=== PATIENT | female | born 1960 | race Caucasian/White ===

== ENCOUNTER 2017-04-08 07:53 | Day surgery (SDC) | payer BC ==
[~2017-04-08 07:53] MED LIST: Lactated Ringers 1,000 ML IV SCH; Sodium Chloride 0.9% 10 ML Syringe FLUSH PRN
[2017-04-08] MEDS ORDERED: Midazolam 1 MG/ML 2 ML SDV ONE ×2 (08:27→09:16)
[2017-04-08] MEDS ORDERED: fentaNYL 100 MCG/2 ML SDV ONE ×2 (08:27→09:16)
[2017-04-08] MEDS ORDERED: Propofol 200 MG/20 ML SDV ONE ×2 (08:28→09:16)
--- NOTE | 2017-04-08 09:13 | PCM.PN ---
- General Info Date of Service: 04/08/17 - Review of Systems Systems Review Comment:: 56-year-old female with bilateral carpal tunnel syndrome here for right carpal tunnel release. She has significant symptoms in the right hand and workup has documented the carpal tunnel syndrome. She is medically stable to proceed today with no recent significant changes in her health status. I have discussed the proposed operative procedure with the patient. Indications and expectations are reviewed. Postop instructions are discussed. I have reviewed with her the risks and possible complications. The site is confirmed with the patient and marked. She agrees to proceed. - Patient Data Vitals - Most Recent: Last Vital Signs Temp 98.5 F 04/08/17 08:44 Pulse 64 04/08/17 08:44 Resp 20 04/08/17 08:44 BP 109/70 04/08/17 08:44 Pulse Ox 94 L 04/08/17 08:44 Weight - Most Recent: 81.647 kg Med Orders - Current: Current Medications Lactated Ringer's (Ringers, Lactated) 1,000 mls @ 125 mls/hr IV ASDIRECTED SYDNEY Last Admin: 04/08/17 08:58 Dose: 125 mls/hr Sodium Chloride (Saline Flush) 10 ml FLUSH ASDIRECTED PRN PRN Reason: Keep Vein Open Discontinued Medications Fentanyl (Sublimaze) Confirm Administered Dose 100 mcg .ROUTE .STK-MED ONE Stop: 04/08/17 08:28 Midazolam HCl (Versed 1 Mg/Ml) Confirm Administered Dose 4 mg .ROUTE .STK-MED ONE Stop: 04/08/17 08:28 Propofol (Diprivan 20 Ml) Confirm Administered Dose 200 mg .ROUTE .STK-MED ONE Stop: 04/08/17 08:29 - Problem List Review Problem List Initiated/Reviewed/Updated: Yes - Assessment Assessment:: Right carpal tunnel syndrome - Plan Plan:: Right carpal tunnel release
[2017-04-08] MEDS ORDERED: Bupivacaine 0.25% 10 ML SDV INJECT ONE (09:50)
[2017-04-08] MEDS ORDERED: Bacitracin Oint 1 GM U/D Packet TOP ONE (09:51)
--- NOTE | 2017-04-08 10:07 | PCM.OPNOTE ---
- General Post-Op/Procedure Note Date of Surgery/Procedure: 04/08/17 Operative Procedure(s): Right carpal tunnel release Findings: Thickened right transverse carpal ligament causing compression of the underlying median nerve. Structures otherwise appear normal. Pre Op Diagnosis: Right carpal tunnel syndrome Post-Op Diagnosis: Same Anesthesia Technique: Regional Block Primary Surgeon: Thanh Denise Pathology: none Output, Urine Amount: 0 EBL in mLs: 5 Complications: None Condition: Good
--- NOTE | 2017-04-08 15:49 | OR ---
Date of Procedure: 04/08/2017 PREOPERATIVE DIAGNOSIS: Right carpal tunnel syndrome. POSTOPERATIVE DIAGNOSIS: Right carpal tunnel syndrome. OPERATION PERFORMED: Right carpal tunnel release. INDICATIONS FOR SURGERY: This 56-year-old female, who has developed symptoms of right carpal tunnel syndrome, which have not responded to conservative management and she comes now for carpal tunnel release. FINDINGS: The patient's right transverse carpal ligament is thickened. This is causing pressure on the underlying median nerve. The nerve and other structures in this area otherwise appear normal. PROCEDURE IN DETAIL: The patient was taken to the operating room. She was given IV regional anesthesia. The right hand, which was then sterilely prepped with Betadine and draped. A longitudinally oriented curvilinear incision was made along the palmar surface of the right wrist. Dissection proceeded down onto the right transverse carpal ligament. This ligament was sharply divided over and parallel to the course of the underlying median nerve. The ligament was completely divided at this level as are any potentially constricting fibrous bands proximally and distally. Great care was used to avoid any injury to the underlying nerve or its branches. Once the nerve had been completely released at this level, the wound was irrigated. The wound was then closed by approximating the skin with interrupted 4-0 Prolene in a mattress technique. Marcaine was then instilled into the wound to assist in postoperative analgesia. Antibiotic ointment and sterile dressing were then placed. This was held in position with an Burak bandage. The tourniquet was released, and the patient was taken from the operating room in satisfactory condition. ESTIMATED BLOOD LOSS: Less than 5 mL. COMPLICATIONS: None. PROGNOSIS: Good. ROYCE Denise MD /[id number]
== END 2017-04-08 10:50 | disposition home or self-care (01) ==
LOC: LL.SDS 07:53
PROVIDERS: ATTEND Surgery
DX: G56.03 Carpal tunnel syndrome, bilateral upper limbs (principal); M06.9 Rheumatoid arthritis, unspecified; E03.9 Hypothyroidism, unspecified; E78.5 Hyperlipidemia, unspecified; F32.9 Major depressive disorder, single episode, unspecified; E55.9 Vitamin D deficiency, unspecified; Z88.1 Allergy status to other antibiotic agents; Z79.899 Other long term (current) drug therapy; Z88.2 Allergy status to sulfonamides; Z91.09 Other allergy status, other than to drugs and biological substances; Z90.49 Acquired absence of other specified parts of digestive tract
CPT/HCPCS: 64721; J2250; J2704; J3010; J7120

== ENCOUNTER 2017-04-22 08:48 | Day surgery (SDC) | payer BC ==
[~2017-04-22 08:48] MED LIST changes: +Midazolam 1 MG/ML 2 ML SDV ONE; +Propofol 200 MG/20 ML SDV ONE; +fentaNYL 100 MCG/2 ML SDV ONE
--- NOTE | 2017-04-22 10:01 | PCM.PN ---
- General Info Date of Service: 04/22/17 - Review of Systems Systems Review Comment:: 56-year-old female here for left carpal tunnel release. She is medically stable to proceed today with no significant changes in her health status since her right carpal tunnel release 2 weeks ago. The site of the proposed surgery today is confirmed with the patient and marked. The procedures again reviewed with her and her questions are answered. The patient has recovered well from her right carpal tunnel release 2 weeks ago. The surgical site is clean and the sutures removed today. She has good mobility of the fingers and wrist and notes an improvement in the sensation in that hand from before surgery. - Patient Data Vitals - Most Recent: Last Vital Signs Temp 98.2 F 04/22/17 09:51 Pulse 68 04/22/17 09:51 Resp 18 04/22/17 09:51 BP 122/58 L 04/22/17 09:51 Pulse Ox 98 04/22/17 09:51 Weight - Most Recent: 81.647 kg Med Orders - Current: Current Medications Lactated Ringer's (Ringers, Lactated) 1,000 mls @ 125 mls/hr IV ASDIRECTED SYDNEY Last Admin: 04/22/17 09:33 Dose: 125 mls/hr Sodium Chloride (Saline Flush) 10 ml FLUSH ASDIRECTED PRN PRN Reason: Keep Vein Open Discontinued Medications Fentanyl (Sublimaze) Confirm Administered Dose 100 mcg .ROUTE .STK-MED ONE Stop: 04/22/17 08:25 Midazolam HCl (Versed 1 Mg/Ml) Confirm Administered Dose 2 mg .ROUTE .STK-MED ONE Stop: 04/22/17 08:25 Propofol (Diprivan 20 Ml) Confirm Administered Dose 200 mg .ROUTE .STK-MED ONE Stop: 04/22/17 08:25 - Problem List Review Problem List Initiated/Reviewed/Updated: Yes - Assessment Assessment:: Left carpal tunnel syndrome - Plan Plan:: Left carpal tunnel release
[2017-04-22] MEDS ORDERED: Propofol 200 MG/20 ML SDV ONE (10:08)
[2017-04-22] MEDS ORDERED: Midazolam 1 MG/ML 2 ML SDV ONE (10:08)
[2017-04-22] MEDS ORDERED: Lidocaine 0.5% 50 ML SDV ONE (10:08)
[2017-04-22] MEDS ORDERED: fentaNYL 100 MCG/2 ML SDV ONE (10:08)
[2017-04-22] MEDS ORDERED: Bupivacaine 0.25% 10 ML SDV INJECT ONE (10:47)
[2017-04-22] MEDS ORDERED: Bacitracin Oint 1 GM U/D Packet TOP ONE (10:49)
--- NOTE | 2017-04-22 11:00 | PCM.OPNOTE ---
- General Post-Op/Procedure Note Date of Surgery/Procedure: 04/22/17 Operative Procedure(s): Left Carpal Tunnel Release Findings: Thick transverse carpal ligament causing pressure on the underlying median nerve Pre Op Diagnosis: Left Carpal Tunnel Syndrome Post-Op Diagnosis: Same Anesthesia Technique: Regional Block Primary Surgeon: Thanh Denise Pathology: none Output, Urine Amount: 0 EBL in mLs: 2 Complications: None Condition: Good
--- NOTE | 2017-04-22 15:57 | OR ---
Date of Procedure: 04/22/2017 PREOPERATIVE DIAGNOSIS: Left carpal tunnel syndrome. POSTOPERATIVE DIAGNOSIS: Left carpal tunnel syndrome. OPERATION PERFORMED: Left carpal tunnel release. INDICATIONS FOR SURGERY: This 56-year-old female has developed left carpal tunnel syndrome who has not responded to conservative management. She comes for a left carpal tunnel release. FINDINGS: The patient's left transverse carpal ligament was thickened and causing compression on the underlying median nerve. The nerve itself, otherwise, appears normal as do the other adjacent structures. PROCEDURE IN DETAIL: The patient was taken to the operating room. She was given IV regional anesthesia of the left hand which was then sterilely prepped with Betadine and draped. After locally infiltrating the skin with Marcaine, a longitudinally oriented curvilinear incision was made along the palmar surface of the left wrist. Dissection proceeded down onto the left transverse carpal ligament which was incised over and parallel to the course of the underlying median nerve. The ligament was completely divided at this level as are any potentially constricting fibrous bands proximally and distally. Great care was used to avoid injury to the underlying nerve or its branches. After the nerve had been completely released at this level and with no sign of any complication, the wound was irrigated and then closed by approximating the skin with interrupted 4-0 Prolene in a mattress technique. Antibiotic ointment and sterile dressing were placed. The patient was then taken from the operating room in satisfactory condition. ESTIMATED BLOOD LOSS: Less than 5 mL. COMPLICATIONS: None. PROGNOSIS: Good. ROYCE Denise MD /[id number] MTDNatalie
== END 2017-04-22 11:46 | disposition home or self-care (01) ==
LOC: LL.SDS 08:48
PROVIDERS: ATTEND Surgery
DX: G56.02 Carpal tunnel syndrome, left upper limb (principal); E03.9 Hypothyroidism, unspecified; E78.5 Hyperlipidemia, unspecified; F32.9 Major depressive disorder, single episode, unspecified; Z88.1 Allergy status to other antibiotic agents; Z98.84 Bariatric surgery status; Z90.49 Acquired absence of other specified parts of digestive tract; Z79.899 Other long term (current) drug therapy
CPT/HCPCS: 64721; J2250; J2704; J3010; J7120

== ENCOUNTER 2019-04-16 21:43 | Emergency (ER) | payer BC ==
--- NOTE | 2019-04-16 22:03 | EDM.PDOC ---
ED HPI GENERAL MEDICAL PROBLEM - General Chief Complaint: Lower Extremity Injury/Pain Stated Complaint: right foot pain Time Seen by Provider: 04/16/19 22:00 Source of Information: Reports: Patient, Old Records ([facility] EMR. No paper hospital chart available.) History Limitations: Reports: No Limitations - History of Present Illness INITIAL COMMENTS - FREE TEXT/NARRATIVE: The patient was brought to the emergency room via private automobile by her friend, Lien, for evaluation of 8/10 sharp right foot pain, which started at about 5 AM this morning. Patient did take 400 mg of ibuprofen at noon, etc. 600 mg of Neurontin at 20:00 hours and 1 tab of her narcotic pain pill at 20:00 hours with no significant improvement of her symptoms. She denies any recent foot injury, local signs of infection, etc.. No recent history of abdominal pain , heartburn, nausea, diarrhea, melena, gross hematochezia, or any food intolerance, including fatty foods, etc.. The patient also denies any recent fever, cough, wheezing, dyspnea, etc.. Onset: Today, Gradual Onset Date: 04/16/19 Onset Time: 05:00 Duration: Constant, Getting Worse Location: Reports: Lower Extremity, Right, Radiates to (Distal anterior tibial region). Denies: Head, Face, Neck, Chest, Abdomen, Back, Pelvis, Upper Extremity, Left, Upper Extremity, Right, Lower Extremity, Left Quality: Reports: Same as Previous Episode, Sharp Severity: Moderate Improves with: Reports: Rest Worsens with: Reports: Movement Context: Reports: Other (As above). 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) (As above) Right Foot Pain Score (Numeric/FACES): 8 - Related Data Allergies Allergy/AdvReac Type Severity Reaction Status Date / Time gentamicin Allergy Itching Verified 04/16/19 21:54 Sulfa (Sulfonamide Allergy Rash Verified 04/16/19 21:54 Antibiotics) poultry dander Allergy Other Uncoded 04/16/19 21:54 Home Meds: Home Meds Escitalopram [Lexapro] 20 mg PO DAILY 04/07/17 [History] Folic Acid 2 mg PO DAILY 04/07/17 [History] Gabapentin [Neurontin] 200 mg PO BID@0800,1200 04/07/17 [History] Levothyroxine 125 mcg PO DAILY 04/07/17 [History] Multivitamin [Daily Multiple Vitamin] 1 tab PO DAILY 04/07/17 [History] Aspirin [Halfprin] 81 mg PO DAILY 04/08/17 [History] Gabapentin [Neurontin] 600 mg PO BEDTIME 04/08/17 [History] Hydrocodone/Acetaminophen [Hydrocodon-Acetaminophen 5-325] 1 - 2 tab PO Q4HR PRN #20 tablet 04/08/17 [Rx] buPROPion [buPROPion XL] 150 mg PO BEDTIME 04/08/17 [History] Methotrexate Sodium/PF [Methotrexate 1 gm Vial] 0.8 gm IJ WEEKLY 01/01/18 [ History] Calcium Carbonate/Vitamin D3 [Calcium 500+D Tablet Chew] 2 tab PO DAILY [History] Past Medical History HEENT History: Reports: Impaired Vision, Other (See Below) Other HEENT History: The patient wears glasses. Burning Mouth Syndrome? Cardiovascular History: Reports: None Respiratory History: Reports: None Gastrointestinal History: Reports: Cholelithiasis Genitourinary History: Reports: None Musculoskeletal History: Reports: Arthritis, Back Pain, Chronic, Neck Pain, Chronic, RA, Other (See Below) Other Musculoskeletal History: Partial right rotator cuff tear. Neurological History: Reports: Neuropathy, Peripheral, Other (See Below) Other Neuro History: Bilateral carpal tunnel syndrome Psychiatric History: Reports: Anxiety, Depression, Other (See Below) Other Psychiatric History: Chronic narcotic use. Endocrine/Metabolic History: Reports: Hypothyroidism, Obesity/BMI 30+, Vitamin D Deficiency Hematologic History: Reports: B12 Deficiency Immunologic History: Reports: None Oncologic (Cancer) History: Reports: None Dermatologic History: Reports: None - Past Surgical History GI Surgical History: Reports: Bariatric Procedure, Cholecystectomy, Other (See Below) Other GI Surgeries/Procedures: Gastric bypass in April 2009 with subsequent laparoscopic cholecystectomy in October 2009. Musculoskeletal Surgical History: Reports: Carpal Tunnel, Other (See Below) Other Musculoskeletal Surgeries/Procedures:: Carpal tunnel release on 04/08/17 with left carpal tunnel release on 04/22/17. - Past Imaging History Past Imaging History: Reports: DEXA Scan (12/21/18 and 08/24/17.), Mammogram ( Last on 12/24/18), MRI (MRI of the right shoulder on 12/26/18. MRI of the C- spine on 02/01/17. MRI of the lumbar spine on 06/13/13.), Other (See Below) (EMGs and nerve conduction studies on 03/09/17.) Social & Family History - Caffeine Use Caffeine Use: Reports: Soda Review of Systems - Review of Systems Review Of Systems: Comprehensive ROS is negative, except as noted in HPI. ED EXAM, GENERAL - Physical Exam Exam: See Below Exam Limited By: No Limitations General Appearance: Alert, WD/WN, No Apparent Distress Head: Atraumatic, Normocephalic Neck: Normal Inspection, Supple, Non-Tender, Full Range of Motion. No: Lymphadenopathy (L), Lymphadenopathy (R), Thyromegaly Respiratory/Chest: No Respiratory Distress, Lungs Clear, Normal Breath Sounds, No Accessory Muscle Use, Chest Non-Tender. No: Pleural Rub, Retractions Cardiovascular: Normal Peripheral Pulses, Regular Rate, Rhythm, No Edema, No Gallop, No JVD, No Murmur, No Rub. No: Gallop/S3, Gallop/S4, Friction Rub Peripheral Pulses: 2+: Radial (L), Radial (R), Dorsalis Pedis (L), Dorsalis Pedis (R) GI/Abdominal: Normal Bowel Sounds, Soft, Non-Tender, No Organomegaly, No Distention, No Abnormal Bruit, No Mass, Other (obese). No: Guarding (Female) Exam: Deferred Rectal (Female) Exam: Deferred Back Exam: Normal Inspection, Full Range of Motion. No: CVA Tenderness (L), CVA Tenderness (R), Muscle Spasm Extremities: No Pedal Edema, Leg Pain (Minimal mid aspect of the dorsal right foot with no joint inflammation, erythema, lymphangitis, sign of infection, etc. ). No: Pedal Edema Neurological: Alert, Oriented, CN II-XII Intact, Normal Cognition, Normal Gait, Normal Reflexes, No Motor/Sensory Deficits Psychiatric: Normal Affect, Normal Mood Skin Exam: Warm, Dry, Intact, Normal Color, No Rash. No: Diaphoretic, Increased Warmth, Lymphangitis, Wound/Incision Lymphatic: No Adenopathy Course - Vital Signs Last Recorded V/S: Last Vital Signs Temp 36.8 C 04/16/19 21:46 Pulse 75 04/16/19 21:46 Resp 18 04/16/19 21:46 BP 132/62 04/16/19 21:46 Pulse Ox 100 04/16/19 21:46 Vital Signs - 24 hr 04/16/19 21:46 Temperature [ 36.8 C Oral] Pulse, 75 Peripheral [ Left Pulse Oximetry] Respiratory 18 Rate Blood Pressure 132/62 [Left Upper Arm ] O2 Sat by Pulse 100 Oximetry - Orders/Labs/Meds Orders: Active Orders 24 hr Category Date Time Status Obtain Past Medical Record [OM.PC] Routine Oth 04/16/19 22:06 Active Labs: None Meds: Medications Discontinued Medications Generic Name Dose Route Start Last Admin Trade Name Rosa PRN Reason Stop Dose Admin Methylprednisolone Acetate 80 mg 04/16/19 22:07 04/16/19 22:12 Depo-Medrol IM 04/16/19 22:08 80 mg ONETIME ONE Administration - Radiology Interpretation Free Text/Narrative:: None Departure - Departure Time of Disposition: 22:28 Disposition: Home, Self-Care 01 Condition: Good Clinical Impression: Hypothyroidism (acquired), Obesity (BMI 30-39.9), Mixed anxiety depressive disorder Rheumatoid arthritis Qualifiers: Rheumatoid arthritis location: multiple sites Rheumatoid factor presence: with rheumatoid factor Qualified Code(s): M05.79 - Rheumatoid arthritis with rheumatoid factor of multiple sites without organ or systems involvement - Discharge Information *PRESCRIPTION DRUG MONITORING PROGRAM REVIEWED*: Not Applicable *COPY OF PRESCRIPTION DRUG MONITORING REPORT IN PATIENT FAIZAN: Not Applicable Referrals: Lexi Bryant PA [Primary Care Provider] - Forms: ED Department Discharge, ED Return to Work/School Form Additional Instructions: 1. Follow up with your regular provider in 10-14 days as needed, if symptoms persist. Bring these discharge instructions with you to that visit.. 2. Tylenol 650 mg by mouth every 4 hours and/or OTC ibuprofen 2-3 tabs by mouth every 6 hours with food as directed./needed. You may stagger these medications for 48-72 hours only, which essentially means that you are receiving a pain medication about every 2 hours. 3. Avoid use of narcotic pain medications as discussed 4. BenGay or equivalent, heating pad, and/or ice packs as directed. 5. Work excuse- See Form 6. Immediately after this visit verify that your cellular telephone's voicemail has been activated and is empty. Also verify that your home telephone 's answering machine is operating properly and has space to receive messages. Note that it is sometimes necessary for us to be able to contact you at a later date to discuss your medical care. 7. Please remember that we are ALWAYS here for you and want to answer any questions you may have. Feel free to call the hospital any time and we call you back NIKO. Sepsis Event Note - Evaluation Sepsis Screening Result: No Definite Risk - Focused Exam Vital Signs: Vital Signs Temp Pulse Resp BP Pulse Ox 04/16/19 21:46 36.8 C 75 18 132/62 100 Date Exam was Performed: 04/16/19 Time Exam was Performed: 22:22 - Problem List & Annotations (1) Rheumatoid arthritis SNOMED Code(s): 88053530 Code(s): M06.9 - RHEUMATOID ARTHRITIS, UNSPECIFIED Status: Acute Priority : High Annotation/Comment:: Mild exacerbation of her rheumatoid arthritis with no significant acute joint inflammation noted. Proper dosing of OTC medications was extensively discussed with patient also counseled on the importance of avoiding narcotic pain medications. IM Depo-Medrol given. Work excuse provided. Otherwise symptomatic relief as per discharge instructions. Qualifiers: Rheumatoid arthritis location: multiple sites Rheumatoid factor presence: with rheumatoid factor Qualified Code(s): M05.79 - Rheumatoid arthritis with rheumatoid factor of multiple sites without organ or systems involvement (2) Mixed anxiety depressive disorder SNOMED Code(s): 928264934 Code(s): F41.8 - OTHER SPECIFIED ANXIETY DISORDERS Status: Chronic Priority: Medium Annotation/Comment:: Stable by patient history with her medical therapy. Note chronic narcotic use secondary to her rheumatoid arthritis as above. (3) Hypothyroidism (acquired) SNOMED Code(s): 617861413 Code(s): E03.9 - HYPOTHYROIDISM, UNSPECIFIED Status: Chronic Priority: Medium Annotation/Comment:: Currently under therapy (4) Obesity (BMI 30-39.9) SNOMED Code(s): 557237228, 875518426 Code(s): E66.9 - OBESITY, UNSPECIFIED Status: Chronic Priority: Medium Annotation/Comment:: Status post gastric bypass surgery. - Problem List Review Problem List Initiated/Reviewed/Updated: Yes - My Orders Last 24 Hours: My Active Orders 04/16/19 22:06 Obtain Past Medical Record [OM.PC] Routine - Assessment/Plan Last 24 Hours: My Active Orders 04/16/19 22:06 Obtain Past Medical Record [OM.PC] Routine Assessment:: As above Plan: As above. Extensive precautions were given to the patient, who is in agreement with the treatment plan. See Patient Instructions for further treatment and plan.
[2019-04-16] MEDS ORDERED: methylPREDNISolone Acetate 80 MG/ML SDV IM ONE (22:07)
== END 2019-04-16 22:28 | disposition home or self-care (01) ==
LOC: LL.ED 21:43
DX: M05.79 Rheumatoid arthritis with rheumatoid factor of multiple sites without organ or systems involvement (principal); F41.8 Other specified anxiety disorders; E03.9 Hypothyroidism, unspecified; Z68.32 Body mass index [BMI] 32.0-32.9, adult; Z88.2 Allergy status to sulfonamides; Z88.1 Allergy status to other antibiotic agents; Z79.82 Long term (current) use of aspirin; Z79.899 Other long term (current) drug therapy
CPT/HCPCS: 96372; 99283; J1040

== ENCOUNTER 2020-11-24 10:31 | Emergency (ER) | payer BC ==
--- NOTE | 2020-11-24 11:17 | EDM.PDOC ---
ED HPI GENERAL MEDICAL PROBLEM - General Chief Complaint: Lower Extremity Injury/Pain Stated Complaint: RA FLARE UP, LEFT HIP PAIN Time Seen by Provider: 11/24/20 10:50 Source of Information: Reports: Patient History Limitations: Reports: No Limitations - History of Present Illness INITIAL COMMENTS - FREE TEXT/NARRATIVE: She is seen in the emergency department for evaluation of diffuse joint pain. She has a history of rheumatoid arthritis. For the past couple of weeks she has had more severe pain in the anterior medial aspect of the left hip. Increased pain with weightbearing. She did have an x-ray of the hip last week which showed some arthritic change but no acute process. She reports significant increased pain in both wrists, right more than left, left hip and the neck. She takes methotrexate regularly. She denies any recent injury or activity change. No fever or chills. 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: Reports: Acetaminophen, NSAIDS, Other Medication(s) Left Hip Pain Score (Numeric/FACES): 7 - Related Data Allergies Allergy/AdvReac Type Severity Reaction Status Date / Time gentamicin Allergy Itching Verified 11/24/20 10:44 latex Allergy Blisters Verified 11/24/20 10:44 Sulfa (Sulfonamide Allergy Rash Verified 11/24/20 10:44 Antibiotics) poultry dander Allergy Other Uncoded 11/24/20 10:44 Home Meds: Home Meds Escitalopram [Lexapro] 20 mg PO DAILY 04/07/17 [History] Folic Acid 2 mg PO DAILY 04/07/17 [History] Gabapentin [Neurontin] 200 mg PO BID@0800,1200 04/07/17 [History] Levothyroxine 125 mcg PO DAILY 04/07/17 [History] Multivitamin [Daily Multiple Vitamin] 1 tab PO DAILY 04/07/17 [History] Aspirin [Halfprin] 81 mg PO DAILY 04/08/17 [History] Gabapentin [Neurontin] 600 mg PO BEDTIME 04/08/17 [History] buPROPion [buPROPion XL] 150 mg PO BEDTIME 04/08/17 [History] Methotrexate Sodium/PF [Methotrexate 1 gm Vial] 0.8 gm IJ WEEKLY 01/01/18 [History] Calcium Carbonate/Vitamin D3 [Calcium 500+D Tablet Chew] 2 tab PO DAILY 04/16/19 [History] Past Medical History HEENT History: Reports: Impaired Vision, Other (See Below) Other HEENT History: The patient wears glasses. Burning Mouth Syndrome? Cardiovascular History: Reports: None Respiratory History: Reports: None Gastrointestinal History: Reports: Cholelithiasis Genitourinary History: Reports: None Musculoskeletal History: Reports: Arthritis, Back Pain, Chronic, Neck Pain, Chronic, RA, Other (See Below) Other Musculoskeletal History: Partial right rotator cuff tear. Neurological History: Reports: Neuropathy, Peripheral, Other (See Below) Other Neuro History: Bilateral carpal tunnel syndrome Psychiatric History: Reports: Anxiety, Depression, Other (See Below) Other Psychiatric History: Chronic narcotic use. Endocrine/Metabolic History: Reports: Hypothyroidism, Obesity/BMI 30+, Vitamin D Deficiency Hematologic History: Reports: B12 Deficiency Immunologic History: Reports: None Oncologic (Cancer) History: Reports: None Dermatologic History: Reports: None - Past Surgical History GI Surgical History: Reports: Bariatric Procedure, Cholecystectomy, Other (See Below) Other GI Surgeries/Procedures: Gastric bypass in April 2009 with subsequent laparoscopic cholecystectomy in October 2009. Musculoskeletal Surgical History: Reports: Carpal Tunnel, Other (See Below) Other Musculoskeletal Surgeries/Procedures:: Carpal tunnel release on 04/08/17 with left carpal tunnel release on 04/22/17. - Past Imaging History Past Imaging History: Reports: DEXA Scan (12/21/18 and 08/24/17.), Mammogram (Last on 12/24/18), MRI (MRI of the right shoulder on 12/26/18. MRI of the C- spine on 02/01/17. MRI of the lumbar spine on 06/13/13.), Other (See Below) (EMGs and nerve conduction studies on 03/09/17.) Social & Family History - Caffeine Use Caffeine Use: Reports: Soda Review of Systems - Review of Systems Review Of Systems: See Below Constitutional: Denies: Chills, Fever Ears: Reports: No Symptoms Nose: Reports: No Symptoms Mouth/Throat: Reports: No Symptoms Respiratory: Denies: Shortness of Breath, Cough Cardiovascular: Denies: Chest Pain, Palpitations GI/Abdominal: Denies: Abdominal Pain, Diarrhea, Nausea, Vomiting Musculoskeletal: Reports: Joint Pain, Joint Swelling Skin: Reports: No Symptoms ED EXAM, GENERAL - Physical Exam Exam: See Below Free Text/Narrative:: Right wrist: Mild diffuse swelling. No deformity. No discoloration. Sharp tenderness over the dorsal aspect diffusely. Mild tenderness over the volar aspect diffusely. Decreased range of motion in all directions secondary to pain. Left wrist: Minimal diffuse swelling. No discoloration. No deformity. Moderate tenderness diffusely over the dorsal aspect. Decreased range of motion in all directions limited by pain. Left hip: No visible deformity or discoloration. Moderate tenderness in the anterior aspect. No lateral or posterior tenderness. Good range of motion in all directions but she does have pain in the extremes, especially internal rotation. General Appearance: Alert, WD/WN Course - Orders/Labs/Meds Meds: Medications Discontinued Medications Generic Name Dose Route Start Last Admin Trade Name Rosa PRN Reason Stop Dose Admin Ketorolac Tromethamine 60 mg 11/24/20 11:07 Ketorolac 60 Mg/2 Ml Sdv IM 11/24/20 11:08 ONETIME ONE - Re-Assessments/Exams Free Text/Narrative Re-Assessment/Exam: She is given Toradol 60 mg IM. She will have a friend come pick her up. Departure - Departure Time of Disposition: 11:12 Disposition: Home, Self-Care 01 Condition: Good Clinical Impression: Rheumatoid arthritis flare, Acute pain of left hip - Discharge Information *PRESCRIPTION DRUG MONITORING PROGRAM REVIEWED*: Not Applicable *COPY OF PRESCRIPTION DRUG MONITORING REPORT IN PATIENT FAIZAN: Not Applicable Instructions: Hip Pain Referrals: Lexi Bryant PA [Primary Care Provider] - Additional Instructions: Prednisone 10 mg. 2 tablets twice daily for 5 days. Take with food. Continue regular medications. Frequent range of motion. No work today. May return to work tomorrow November 25, 2020. Follow-up if not improving. - Problem List & Annotations (1) Acute pain of left hip SNOMED Code(s): 13629711 Code(s): M25.552 - PAIN IN LEFT HIP Status: Acute Current Visit: Yes (2) Rheumatoid arthritis flare SNOMED Code(s): 590722871 Code(s): M06.9 - RHEUMATOID ARTHRITIS, UNSPECIFIED Status: Acute Current Visit: Yes - Assessment/Plan Plan: Prednisone 10 mg. 2 tablets twice daily for 5 days. Take with food. Continue regular medications. Frequent range of motion. No work today. May return to work tomorrow November 25, 2020. Follow-up if not improving.
[2020-11-24] MEDS: Ketorolac 60 MG/2 ML SDV IM ONE (11:19)
== END 2020-11-24 11:30 | disposition home or self-care (01) ==
LOC: LL.ED 10:31
DX: M06.9 Rheumatoid arthritis, unspecified (principal); E03.9 Hypothyroidism, unspecified; E66.9 Obesity, unspecified; G62.9 Polyneuropathy, unspecified; Z88.1 Allergy status to other antibiotic agents; Z91.040 Latex allergy status; Z88.2 Allergy status to sulfonamides; Z91.048 Other nonmedicinal substance allergy status; Z79.82 Long term (current) use of aspirin; Z79.899 Other long term (current) drug therapy
CPT/HCPCS: 96372; 99283; J1885